=== PATIENT | female | born 1970 | race Caucasian/White ===

== ENCOUNTER 2022-09-29 15:11 | Emergency (ER) | payer OTHER, MEDICARE, MEDICAID ==
[2022-09-29] MEDS ORDERED: HYDROcodone/Acetaminophen 5/325 mg Tablet ONE (15:54)
[2022-09-29] MEDS ORDERED: Cyclobenzaprine 10 MG TAB ONE (16:14)
[2022-09-29] MEDS ORDERED: Dexamethasone 10 MG/ML VIAL ONE (16:17)
== END 2022-09-29 18:04 | disposition home or self-care (01) ==
LOC: CSHERS 15:11
DX: S06.0X0A Concussion without loss of consciousness, initial encounter (principal); S16.1XXA Strain of muscle, fascia and tendon at neck level, initial encounter; W20.8XXA Other cause of strike by thrown, projected or falling object, initial encounter
CPT/HCPCS: 70450; 72125; J1100